=== PATIENT | male | born 1995 | race Caucasian/White ===

== ENCOUNTER 2017-01-09 15:27 | Emergency (ER) | payer SELFPAY ==
[~2017-01-09] VITALS: Ht 180.3 cm; Wt 76.0 kg
[~2017-01-09 15:27] MED LIST: TRAM50 PO
[2017-01-09 15:31] VITALS: BP 119/77; PULSE 68; RESP 16; TEMP 98.8; O2SAT 99
--- NOTE | 2017-01-09 16:09 | PD ---
HPI Chief Complaint: Pain: Acute or Chronic Time Seen by Provider: 16:09 Travel History International Travel<30 days: No Contact w/Intl Traveler<30days: No Traveled to known affect area: No History of Present Illness HPI 21-year-old male presents to the ED for evaluation of 3 day history pain of the right great toe. Pain is centered around the medial edge of the right great toenail. Patient endorses "hard/dry skin" in the area. Gradual onset. He denies fevers, chills, numbness, tingling, weakness, limitations to range of motion or loss of strength of the extremity. Also states that he has a wart on the bottom of his foot that is about 1 month old. PFSH Past Medical History Medical History: Denies Significant Hx Diminished Hearing: No Tetanus Vaccination: > 5 Years Influenza Vaccination: No Past Surgical History Surgical History: No Previous Surgery Social History Alcohol Use: Yes ("A LOT" OF BEER DAILY; 2 BEERS TODAY (01/09/17)) Tobacco Use: Yes (1 PPD) Substance Use: No (HX MARIJUANA; DENIES CURRENT USE) Allergies-Medications (Allergen,Severity, Reaction): Coded Allergies: No Known Allergies (Unverified , 01/09/17) Reported Meds & Prescriptions Reported Meds & Active Scripts Active Bactrim DS (Sulfamethoxazole-Trimethoprim) 800-160 Mg Tab 1 Tab PO BID Mupirocin Topical (Mupirocin) 2 % Oint 1 Applic TOPICAL BID 14 Days Review of Systems Except as stated in HPI: all other systems reviewed are Neg Physical Exam Narrative GENERAL: Well-nourished, well-developed male in no acute distress. SKIN: Focused skin assessment warm/dry. There is a subcentimeter wart on the plantar aspect of the right foot, just proximal to the MP joint of the great toe. There are crusts of dry skin surrounding the medial lateral nail fold of the great toe. There is mild to moderate tender erythema of the proximal nail fold. No fluctuance noted. HEAD: Normocephalic. EYES: No scleral icterus. No injection or drainage. NECK: Supple, trachea midline. No JVD or lymphadenopathy. CARDIOVASCULAR: Regular rate and rhythm without murmurs, gallops, or rubs. RESPIRATORY: Breath sounds equal bilaterally. No accessory muscle use. GASTROINTESTINAL: Abdomen soft, non-tender, nondistended. MUSCULOSKELETAL: No cyanosis, or edema. BACK: Nontender without obvious deformity. No CVA tenderness. Data Data Last Documented VS Vital Signs Date Time Temp Pulse Resp B/P Pulse Ox O2 Delivery O2 Flow Rate FiO2 01/09/17 15:31 98.8 68 16 119/77 99 MDM Medical Decision Making Medical Screen Exam Complete: Yes Emergency Medical Condition: Yes Differential Diagnosis Paronychia versus onychomycosis versus Planters wart versus cellulitis versus other Narrative Course 21-year-old male presents to the ED for evaluation of 3 day history pain of the right great toe. Pain is centered around the medial edge of the right great toenail. Patient endorses "hard/dry skin" in the area. Gradual onset. He denies fevers, chills, numbness, tingling, weakness, limitations to range of motion or loss of strength of the extremity. Also states that he has a wart on the bottom of his foot that is about 1 month old. Vitals reviewed. Physical exam reveals a nontoxic-appearing male in no acute distress. There is a subcentimeter wart on the plantar aspect of the right foot, just proximal to the MP joint of the great toe. There are crusts of dry skin surrounding the medial lateral nail fold of the great toe. There is mild to moderate tender erythema of the proximal nail fold. No fluctuance noted. I suspect this may be an early paronychia. Patient was provided mupirocin ointment, Bactrim DS prescriptions. He is instructed to take the medication as prescribed, apply ointment 2-3 times a day, keep the foot clean and dry, follow up with the primary care provider. He instructed to use OTC medications for the plantar wart treatment. We discussed reasons to return to the ED. He indicated understanding of instructions and is agreeable a care plan. He is stable and discharged home. Diagnosis Primary Impression: Paronychia of great toe, right Additional Impression: Plantar wart of right foot Referrals: Control Specialist Primary Care Physician Patient Instructions: General Instructions, Paronychia (ED), Plantar Wart (ED) Additional Instructions: Rest, hydrate. Take all antibiotics as prescribed, even her symptoms resolved. Mupirocin ointment twice a day to the affected area for 14-20 days. Epsom salt soaks of the feet to soften the skin. [id number] treatment for plantar wart. Keep the feet clean and dry. Follow-up with the director environmental or primary care provider. Return to the ED for any urgent or emergent medical condition. Scripts Sulfamethoxazole-Trimethoprim (Bactrim DS)800-160 Mg Tab1 Tab PO BID #14 TAB Ref 0 Prov:Shiva Webb MD 01/09/17 Mupirocin Topical 2 % Oint1 Applic TOPICAL BID 14 Days Ref 0 Prov:Shiva Webb MD 01/09/17 Disposition: 01 DISCHARGE HOME Condition: Stable Elza Kaye Jan 09, 2017 16:09
[2017-01-09] MEDS ORDERED: BACT800T5 PO (16:26)
[2017-01-09] MEDS ORDERED: MUPI2OIN TOPICAL (16:26)
== END 2017-01-09 16:38 | disposition home or self-care (01) ==
LOC: PHEFT 15:27
DX: L03.031 Cellulitis of right toe (principal); B07.0 Plantar wart; F17.210 Nicotine dependence, cigarettes, uncomplicated
CPT/HCPCS: 99282